=== PATIENT | female | born 1990 | race African-American/Black ===

== ENCOUNTER 2017-01-07 23:37 | Emergency (ER) | payer OTHER ==
[~2017-01-07] VITALS: Ht 165.1 cm; Wt 59.0 kg
[2017-01-08 00:16] LABS: BASO # 0.1 x10^3/uL (0.0-0.2); BASO % 2 % (0-3); EOS % 5 % (0-3); HEMATOCRIT 38.5 % (36.0-47.0); HEMOGLOBIN 12.2 g/dL (12.0-15.5); LYMPH # 3.3 x10^3/uL (1.0-4.8); LYMPH % 50 % (24-48); MEAN CORPUSCULAR HEMOGLOBIN 26 pg (25-35); MEAN CORPUSCULAR HGB CONC 32 g/dL (31-37); MEAN CORPUSCULAR VOLUME 83 fL (79-100); MONO % 5 % (0-9); NEUT % 38 % (31-73); PLATELET COUNT 95 x10^3/uL (140-400); RED BLOOD COUNT 4.64 x10^6/uL (3.50-5.40); WHITE BLOOD COUNT 6.5 x10^3/uL (4.0-11.0)
[2017-01-08 00:17] LABS: BILIRUBIN,URINE NEGATIVE (NEG); GLUCOSE,URINE NEGATIVE (NEG); NITRITE,URINE NEGATIVE (NEG); PH,URINE 6.5; PROTEIN,URINE NEGATIVE (NEG-TRACE); UROBILINOGEN,URINE 0.2 mg/dL (0.2 mg/dL)
[2017-01-08 00:22] LABS: BARBITURATES NEG (NEG); BENZODIAZEPINES NEG (NEG); CALCIUM 8.7 mg/dL (8.5-10.1); CANNABINOIDS POS (NEG); COCAINE NEG (NEG); CREATININE 0.7 mg/dL (0.6-1.0); GFR 101.1; METHADONE NEG (NEG); OPIATES NEG (NEG); PHENCYCLIDINE NEG (NEG); POTASSIUM 3.7 mmol/L (3.5-5.1)
[2017-01-08 00:27] LABS: BACTERIA,URINE 0 /HPF (0-FEW); RBC,URINE 0 /HPF (0-2); SQUAMOUS EPITHELIAL CELL,UR FEW /LPF; WBC,URINE 0 /HPF (0-4)
[2017-01-08 00:28] LABS: ALBUMIN 3.9 g/dL (3.4-5.0); ALBUMIN/GLOBULIN RATIO 1.1 (1.0-1.7); MAGNESIUM 2.5 mg/dL (1.8-2.4); TOTAL BILIRUBIN 0.3 mg/dL (0.2-1.0); TOTAL PROTEIN 7.5 g/dL (6.4-8.2)
[2017-01-08] MEDS ORDERED: FAMOTIDINE 20 MG TABLET. PO ONE (00:30)
[2017-01-08] MEDS ORDERED: ONDANSETRON PF 4 MG/2 ML VIAL. IV ONE (00:30)
[2017-01-08] MEDS ORDERED: MULTIVIT INFUSN,ADULT 4,VIT K 10 ML, FOLIC ACID 1 MG, THIAMINE 100 MG in IV NORMAL SALI... IV SCH (00:30)
[2017-01-08] MEDS ORDERED: FAMOTIDINE 20 MG/2 ML VIAL IVP ONE (00:45)
--- NOTE | 2017-01-08 00:50 | RAD ---
PQRS Compliance Statement: One or more of the following individualized dose reduction techniques were utilized for this examination: 1. Automated exposure control 2. Adjustment of the mA and/or kV according to patient size 3. Use of iterative reconstruction technique CT HEAD WITHOUT CONTRAST History: ams; etoh Comparison: None. Procedure: Axial images are obtained of the head from the skull base through the vertex without IV contrast. Findings: The ventricles and sulci are normal for the patient's age. No mass-effect, midline shift, hemorrhage, extra-axial fluid collection, or obvious acute infarction is identified. Basilar cisterns are patent. Bone windows demonstrate no acute calvarial abnormality. Moderate mucosal thickening bilateral ethmoid sinuses. Maxillary sinuses incompletely imaged. No air-fluid level. Mastoid air cells are well aerated. IMPRESSION: No acute intracranial abnormality. Electronically signed by: Liborio Salcido MD (01/08/2017 12:48 AM) [facility]
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
[2017-01-08 01:49] VITALS: BP 104/64
== END 2017-01-08 02:50 | disposition other institution (70) ==
LOC: ER 23:37
DX: F10.129 Alcohol abuse with intoxication, unspecified (principal); R41.82 Altered mental status, unspecified
CPT/HCPCS: 36415; 70450; 80053; 80307; 81001; 81025; 83735; 85025; 96365; 96375; 99285; G0480; J2405; J7030; S0028; G0479

== ENCOUNTER 2017-02-27 21:17 | Emergency (ER) | payer SELFPAY ==
[~2017-02-27] VITALS: Ht 154.9 cm; Wt 52.2 kg
[2017-02-27 21:37] VITALS: BP 117/73
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
[2017-02-27] MEDS ORDERED: DIPHTH,PERTUSS(ACELL),TET TOX 0.5 ML DISP.SYRIN. VAX IM ONE (22:00)
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
== END 2017-02-27 23:16 | disposition home or self-care (01) ==
LOC: ER 21:17
DX: S70.212A Abrasion, left hip, initial encounter (principal); S50.312A Abrasion of left elbow, initial encounter; S50.311A Abrasion of right elbow, initial encounter; S80.211A Abrasion, right knee, initial encounter; Y04.2XXA Assault by strike against or bumped into by another person, initial encounter; Y93.89 Activity, other specified; Y99.8 Other external cause status; Y92.89 Other specified places as the place of occurrence of the external cause
CPT/HCPCS: 71010; 73080; 73502; 81025; 90471; 90715; 99284-25

== ENCOUNTER → 2017-05-26 | Outpatient (CLI) | payer OTHER | END | disposition home or self-care (01) | LOC: KCIC US 13:38 | DX: N64.4 Mastodynia (principal); N63.10 Unspecified lump in the right breast, unspecified quadrant; N63.20 Unspecified lump in the left breast, unspecified quadrant | CPT/HCPCS: 76641 ==

== ENCOUNTER 2017-08-28 15:05 | Emergency (ER) | payer OTHER ==
[2017-08-28 16:24] LABS: BILIRUBIN,URINE NEGATIVE (NEG); CLARITY,URINE CLEAR; COLOR,URINE YELLOW; GLUCOSE,URINE NEGATIVE (NEG); NITRITE,URINE NEGATIVE (NEG); PROTEIN,URINE NEGATIVE (NEG-TRACE); UROBILINOGEN,URINE 0.2 mg/dL (0.2 mg/dL)
[2017-08-28 16:27] LABS: NEG OBC UR NEG; POS OBC UR POS; U PREG PATIENT NEGATIVE (NEG)
[2017-08-28 16:33] LABS: RBC,URINE 0 /HPF (0-2); WBC,URINE OCC /HPF (0-4)
[2017-08-28 16:34] LABS: BACTERIA,URINE 0 /HPF (0-FEW); SQUAMOUS EPITHELIAL CELL,UR OCC /LPF
[2017-08-28] MEDS: ACETAMINOPHEN 500 MG TABLET PO (17:05)
[2017-08-28 17:16] LABS: ADD MAN DIFF? NO
[2017-08-28 17:21] LABS: BASO # 0.1 x10^3/uL (0.0-0.2); BASO % 2 % (0-3); EOS # 0.3 x10^3/uL (0.0-0.7); EOS % 6 % (0-3); HEMATOCRIT 35.4 % (36.0-47.0); HEMOGLOBIN 11.4 g/dL (12.0-15.5); LYMPH # 2.1 x10^3/uL (1.0-4.8); LYMPH % 48 % (24-48); MEAN CORPUSCULAR HEMOGLOBIN 27 pg (25-35); MEAN CORPUSCULAR HGB CONC 32 g/dL (31-37); MEAN CORPUSCULAR VOLUME 83 fL (79-100); MONO # 0.2 x10^3/uL (0.0-1.1); MONO % 6 % (0-9); NEUT # 1.7 x10^3uL (1.8-7.7); NEUT % 39 % (31-73); PLATELET COUNT 222 x10^3/uL (140-400); RED BLOOD COUNT 4.29 x10^6/uL (3.50-5.40); RED CELL DISTRIBUTION WIDTH 14.1 % (11.5-14.5); WHITE BLOOD COUNT 4.4 x10^3/uL (4.0-11.0)
[2017-08-28 17:30] LABS: ANION GAP 7 (6-14); BLOOD UREA NITROGEN 9 mg/dL (7-20); BUN/CREATININE RATIO 11 (6-20); CALCIUM 8.8 mg/dL (8.5-10.1); CARBON DIOXIDE 28 mmol/L (21-32); CHLORIDE 104 mmol/L (98-107); CREATININE 0.8 mg/dL (0.6-1.0); GFR 104.9; GLUCOSE 133 mg/dL (70-99); POTASSIUM 3.6 mmol/L (3.5-5.1); SODIUM 139 mmol/L (136-145)
[2017-08-28 17:36] LABS: ALBUMIN 3.6 g/dL (3.4-5.0); ALK PHOS 63 U/L (46-116); ALT (SGPT) 25 U/L (14-59); AST (SGOT) 21 U/L (15-37); TOTAL BILIRUBIN 0.4 mg/dL (0.2-1.0); TOTAL PROTEIN 7.1 g/dL (6.4-8.2)
== END 2017-08-28 20:54 | disposition home or self-care (01) ==
LOC: ER 15:05
DX: G43.909 Migraine, unspecified, not intractable, without status migrainosus (principal); R35.0 Frequency of micturition; R56.9 Unspecified convulsions; F10.20 Alcohol dependence, uncomplicated; F12.10 Cannabis abuse, uncomplicated; Z88.0 Allergy status to penicillin; Z88.1 Allergy status to other antibiotic agents
CPT/HCPCS: 36415; 70450; 70551; 80053; 81001; 81025; 85025; 99285-25

== ENCOUNTER → 2017-11-06 | Outpatient (CLI) | payer OTHER | END | disposition home or self-care (01) | LOC: SLPLAB 06:09 | DX: G40.89 Other seizures (principal) | CPT/HCPCS: 95951 ==

== ENCOUNTER 2018-01-11 09:05 | Emergency (ER) | payer OTHER ==
[~2018-01-11] VITALS: Ht 154.9 cm; Wt 62.6 kg
[2018-01-11 09:40] VITALS: BP 126/58
[2018-01-11] MEDS ORDERED: DEXAMETHASONE SOD PHOS 4 MG/ML VIAL PO ONE (10:30)
--- NOTE | 2018-01-11 13:15 | PHYS DOC ---
Past Medical History Past Medical History: Bipolar, Depression Additional Past Medical Histor: PTSD, Past Surgical History: Other Additional Past Surgical Histo: CERVICAL TUMOR REMOVED, HARLAN. BREAST BIOPSY AND LUMPECTOMY Alcohol Use: Occasionally Drug Use: Marijuana Social History Narrative: pt denies 01/11/18 Adult General Chief Complaint Chief Complaint: SORE THROAT HPI HPI Patient is a 28 year old sore throat cough subjective fever for the last 2 days kids are also sick at home Current Medications Current Medications Current Medications Medications (Trade) Dose Ordered Sig/Anderson Start Time Stop Time Status Last Admin Dose Admin Dexamethasone Sodium Phosphate (Decadron) 4 mg 1X ONCE 01/11/18 10:30 01/11/18 10:31 DC 01/11/18 10:35 4 MG Allergies Allergies Allergies Coded Allergies Type Severity Reaction Last Updated Verified Penicillins Allergy Intermediate 08/28/17 Yes cephalexin Allergy Intermediate 08/28/17 Yes Physical Exam Physical Exam Constitutional: Well developed, well nourished, no acute distress, non-toxic appearance. [] HENT: Normocephalic, atraumatic, bilateral external ears normal, oropharynx shows erythema with no exudate no significant lymphadenopathy Eyes: PERRLA, EOMI, conjunctiva normal, no discharge. [] Neck: Normal range of motion, no tenderness, supple, no stridor. [] Cardiovascular:Heart rate regular rhythm, no murmur [] Lungs & Thorax: Bilateral breath sounds clear to auscultation [] Abdomen: Bowel sounds normal, soft, no tenderness, no masses, no pulsatile masses. [] Skin: Warm, dry, no erythema, no rash. [] Current Patient Data Vital Signs Vital Signs Date Time Temp Pulse Resp B/P (MAP) Pulse Ox O2 Delivery O2 Flow Rate FiO2 01/11/18 09:40 98.5 67 16 126/58 (80) 100 Room Air 98.5 Lab Values Laboratory Tests Test 01/11/18 10:05 Group A Streptococcus Rapid Negative (NEGATIVE) EKG EKG [] Radiology/Procedures Radiology/Procedures [] Course & Med Decision Making Course & Med Decision Making Pertinent Labs and Imaging studies reviewed. (See chart for details) []Rapid strep is negative. I suspect a viral etiology no evidence of GAS TENDER Decadron given return precautions advised patient voiced understanding Dragon Disclaimer Dragtomeak Disclaimer This electronic medical record was generated, in whole or in part, using a voice recognition dictation system. Departure Departure Impression: Primary Impression: Pharyngitis Disposition: 01 HOME, SELF-CARE Condition: IMPROVED Patient Instructions: Sore Narinder, [id number] AYLEEN RAMEY MD Jan 11, 2018 13:15
[2018-01-16] MEDS ORDERED: CLIN300C8 PO (10:00)
== END 2018-01-11 10:38 | disposition home or self-care (01) ==
LOC: ER 09:05
DX: J02.9 Acute pharyngitis, unspecified (principal); R50.9 Fever, unspecified; R05 Cough; F31.9 Bipolar disorder, unspecified; F43.10 Post-traumatic stress disorder, unspecified; Z88.0 Allergy status to penicillin; Z88.1 Allergy status to other antibiotic agents
CPT/HCPCS: 87070; 87880; 99283; J1100